=== PATIENT | female | born 1985 | race Caucasian/White ===

== ENCOUNTER 2017-05-12 05:57 | Inpatient (IN) | payer MEDICAID ==
[~2017-05-12] VITALS: Ht 149.9 cm; Wt 82.7 kg
[2017-05-12] MEDS ORDERED: LACTATED RINGER'S 1,000 ML IV PRN (06:45)
[2017-05-12] MEDS ORDERED: LACTATED RINGER'S 1,000 ML IV SCH (07:40)
[2017-05-12] MEDS ORDERED: CARBOPROST 250 MCG INJ IM PRN (08:00)
[2017-05-12] MEDS ORDERED: MISOPROSTOL 200 MCG TAB PR PRN (08:00)
[2017-05-12] MEDS ORDERED: LIDOCAINE 1% (MPF) 30 ML INJ INJ PRN (08:00)
[2017-05-12] MEDS ORDERED: METHYLERGONOVINE 0.2 MG INJ IM PRN (08:00)
[2017-05-12] MEDS ORDERED: OXYTOCIN 30 UNITS/LR 500 ML IV PRN (08:00)
[2017-05-12 08:33] LABS: ADD SCAN DIFF NO
[2017-05-12 08:35] VITALS: BMI 36.8
[2017-05-12 08:36] LABS: BASOPHILS % 0.4 % (0.0-2.0); EOSINOPHILS # 0.1 10^3/ul (0.0-0.5); EOSINOPHILS % 1.1 % (0.0-7.0); HEMATOCRIT 38.6 % (37.0-47.0); HEMOGLOBIN 12.4 g/dl (12.0-16.0); LYMPHOCYTES % 18.7 % (15.0-51.0); MEAN CORPUSCULAR HEMOGLOBIN 28.2 pg (29.0-33.0); MEAN CORPUSCULAR HGB CONC 32.1 g/dl (32.0-37.0); MEAN CORPUSCULAR VOLUME 87.9 fl (82.0-101.0); MEAN PLATELET VOLUME 12.2 fl (7.4-10.4); MONOCYTE # 0.4 10^3/ul (0.3-0.9); MONOCYTES % 7.6 % (0.0-11.0); NEUTROPHIL # 3.8 10^3/ul (1.6-7.5); NEUTROPHILS % 71.8 % (39.0-77.0); PLATELET COUNT 172 10^3/UL (140-415); RED BLOOD COUNT 4.39 10^6/ul (4.20-5.40); WHITE BLOOD COUNT 5.2 10^3/ul (4.8-10.8)
[2017-05-12 08:38] VITALS: Ht 149.9 cm; Wt 82.7 kg
[2017-05-12 08:39] VITALS: BP 126/72; PULSE 74
[2017-05-12 08:39] LABS: ADD UMIC YES; UR BILIRUBIN (Dip) NEGATIVE (NEGATIVE); UR BLOOD (Dip) NEGATIVE (NEGATIVE); UR CLARITY CLEAR (CLEAR); UR COLOR LT. YELLOW (YELLOW); UR GLUCOSE (Dip) NEGATIVE (NEGATIVE); UR KETONES (Dip) NEGATIVE (NEGATIVE); UR LEUKOCYTE ESTERASE (Dip) TRACE (NEGATIVE); UR NITRITE (Dip) NEGATIVE (NEGATIVE); UR TOTAL PROTEIN (Dip) NEGATIVE (NEGATIVE); UR UROBILINOGEN (Dip) 0.2 E.U./dL (0.1-1.0)
[2017-05-12] MEDS ORDERED: PRENAT PO (08:44)
[2017-05-12 08:52] LABS: URINE RBCS NONE SEEN /HPF (0)
[2017-05-12 08:53] LABS: UR BACTERIA FEW; UR SQUAMOUS EPITHELIAL CELL FEW
[2017-05-12 08:56] LABS: INR 0.89; PT RATIO 0.9
[2017-05-12 08:57] LABS: PARTIAL THROMBOPLASTIN TIME 27.9 Sec (25.0-35.0)
[2017-05-12] MEDS ORDERED: MINERAL OIL LIGHT 10 ML VIAL TOP ONE (09:00)
[2017-05-12] MEDS ORDERED: OXYTOCIN 30 UNITS/LR 500 ML IV SCH ×2 (09:00)
[2017-05-12] MEDS ORDERED: IBUPROFEN 600 MG TAB PO PRN (09:00)
[2017-05-12] MEDS ORDERED: ACETAMINOPHEN/CODEINE #3 TAB PO PRN (09:00)
[2017-05-12 09:01] LABS: ALBUMIN 3.8 g/dl (3.3-4.9); ALBUMIN/GLOBULIN RATIO 1.31; BILIRUBIN,INDIRECT 0.1 mg/dl (0-1.1); BILIRUBIN,TOTAL 0.1 mg/dl (0.2-1.3); CALCIUM 8.7 mg/dl (8.4-10.2); CREATININE 0.66 mg/dl (0.44-1.00); POTASSIUM 3.9 mmol/L (3.5-5.1); TOTAL PROTEIN 6.7 g/dl (6.1-8.1); URIC ACID 6.6 mg/dl (3.1-7.9)
[2017-05-12] MEDS: LACTATED RINGER'S 1,000 ML IV SCH ×3 (09:12→22:05)
--- NOTE | 2017-05-12 09:56 | RADRPT ---
PROCEDURE: US OB. CLINICAL INDICATION: Macrosomia TECHNIQUE: Multiple sonographic images of the pelvis were obtained. Transabdominal imaging only w as performed. The images were reviewed on a PACS workstation. COMPARISON: No prior studies are available for comparison. FINDINGS: Single intrauterine gestation. Cephalic presentation. heart rate is 126 bpm. Measurements were made in order to determine age. The results are as follows: BPD = 8.85 cm HC = 31.97 cm AC = 35.02 cm FL = 7.33 cm Gestational age is 37 weeks 0 days and ADALBERTO is 06/02/2015 by ultrasound criteria. EFW = 3330 g +/- 499 g (23 %). The placenta is fundal. There is no evidence for an abruption or placenta previa. IMPRESSION: 1. Single live intrauterine gestation of approximately 37 weeks 0 days by ultrasound criteria. RPTAT: HH .José Miguel Echols MD, MD Date Time Electronically viewed and signed by .José Miguel Echols MD, on 05/12/2017 09:56 .R/
[2017-05-12] MEDS ORDERED: DINOPROSTONE 10 MG VAG SUPP VAG ONE (11:30)
--- NOTE | 2017-05-12 17:29 | HP ---
Date/Time of Note Date/Time of Note DATE: 05/12/17 TIME: 17:27 OB - History Hx of Present Free Text/Dictation admtted for elective induction at term Last Menstrual Period: Jul 18, 2016 Estimated Due Date: May 10, 2017 : 3 Para: 2 Care: Good Care Past Family/Social History * Past Medical, Surgical, Family and Obstetric Histories reviewed from chart. Blood Type: O+ Rubella: immune RPR/VDRL: Negative GBS Status: Negative HBsAG: Negative OB Admission Exam Vital Signs Vital Signs Vital Signs Date Time Temp Pulse Resp B/P Pulse Ox O2 Delivery O2 Flow Rate FiO2 05/12/17 08:39 98.2 74 126/72 Room Air Physical Exam HEENT: WNL Heart: Rhythm Normal Lungs: Clear, Equal Abdomen: WNL Extremities: Normal Reflexes: Normal Cervical Dilatation: None Effacement: 0% Station: -3 Membranes: Intact Heart Rate: 130's Accelerations: Accelerations Present Decelerations: No Decelerations Varibility: Moderate Contractions on Admission: None Last 72 hours Lab Results CBC & BMP 05/12/17 06:45 Liver Function Test 05/12/17 06:45 Alanine Aminotransferase (ALT/SGPT) 40 Albumin 3.8 Alkaline Phosphatase 187 H Aspartate Amino Transf (AST/SGOT) 40 Direct Bilirubin 0.00 Total Protein 6.7 OB Assessment/Plan Reason for admission: induction of labor Other Assessment: term gestation Induction Method: per Misoprostol Protocol MELISSA ESCOBAR MD May 12, 2017 17:29
[2017-05-12] MEDS ORDERED: MINERAL OIL LIGHT 10 ML VIAL TOP PRN (18:00)
[2017-05-12] MEDS: BUTORPHANOL 2 MG INJ IV PRN (21:55)
[2017-05-13] MEDS: LACTATED RINGER'S 1,000 ML IV SCH ×3 (06:00→16:06)
[2017-05-13] MEDS: BUTORPHANOL 2 MG INJ IV PRN ×2 (07:32→09:51)
[2017-05-13] MEDS ORDERED: DINOPROSTONE 10 MG VAG SUPP VAG ONE (11:30)
[2017-05-13] MEDS ORDERED: FENTAnyl 2MCG/ML-ROPIV 0.2% 100 ML ONE (14:01)
[2017-05-13] MEDS ORDERED: FENTAnyl 2MCG/ML-ROPIV 0.2% 100 ML BAG EPI SCH (15:00)
[2017-05-13] MEDS ORDERED: NALOXONE (0.4 MG/ML) INJ IV PRN (15:00)
--- NOTE | 2017-05-13 19:17 | LDN ---
Date/Time of Note Date/Time of Note DATE: 05/13/17 TIME: 19:14 Delivery Summary of a viable infant over intact perineum Weeks of Gestation 40+ Placenta Delivered: Spontaneously, Intact & Complete Meconium: none Episiotomy: No Perineal laceration: 1 Laceration repair: 1st degree perineal laceration was repaired in layers with 2 0 chromib Anesthesia type: Epidural Estimated blood loss: 400 Sponge & Needle done & correct: Yes All needle counts correct: Yes Any foreign bodies felt in the: No Problems: Infant Delivery Information Sex Sex: female Apgars 1 Minute: 9 5 Minute: 9 Suctioning Nose & mouth suctioned at lanny: Yes Delee suction performed: No Umbilical Cord Umbilical cord with: 3 Vessels Cord presentations: no nuchal cord Cord Blood was obtained: Yes Mother & Baby Disposition Disposition Mom & Baby to Maternity; Good: Yes (mother and baby were recovered in good condition ) Mom transferred to: Other (maternity) Baby to NICU: No MELISSA ESCOBAR MD May 13, 2017 19:17
[2017-05-13 20:34] LABS: ADD SCAN DIFF NO
[2017-05-13 20:35] LABS: BASOPHILS % 0.2 % (0.0-2.0); HEMOGLOBIN 12.2 g/dl (12.0-16.0); LYMPHOCYTES # 0.7 10^3/ul (0.8-2.9); MEAN CORPUSCULAR HEMOGLOBIN 28.5 pg (29.0-33.0); MEAN CORPUSCULAR VOLUME 86.4 fl (82.0-101.0); MEAN PLATELET VOLUME 10.8 fl (7.4-10.4); MONOCYTE # 0.6 10^3/ul (0.3-0.9); MONOCYTES % 6.2 % (0.0-11.0); NEUTROPHILS % 86.2 % (39.0-77.0); PLATELET COUNT 187 10^3/UL (140-415); RED BLOOD COUNT 4.28 10^6/ul (4.20-5.40); RED CELL DISTRIBUTION WIDTH 14.3 % (11.5-14.5); WHITE BLOOD COUNT 9.3 10^3/ul (4.8-10.8)
[2017-05-13 20:59] LABS: ALBUMIN 3.4 g/dl (3.3-4.9); ALBUMIN/GLOBULIN RATIO 1.21; BILIRUBIN,INDIRECT 0.3 mg/dl (0-1.1); BILIRUBIN,TOTAL 0.3 mg/dl (0.2-1.3); CALCIUM 8.5 mg/dl (8.4-10.2); CREATININE 0.66 mg/dl (0.44-1.00); TOTAL PROTEIN 6.2 g/dl (6.1-8.1); URIC ACID 7.4 mg/dl (3.1-7.9)
[2017-05-13 23:00] VITALS: BP 142/66; PULSE 68; RESP 20
[2017-05-13] MEDS ORDERED: WITCH HAZEL/GLYCERIN PAD PR PRN (23:00)
[2017-05-13] MEDS ORDERED: ACETAMINOPHEN/CODEINE #3 TAB PO PRN (23:00)
[2017-05-13] MEDS ORDERED: LANOLIN 7 GM TUBE TOP PRN (23:00)
[2017-05-13] MEDS ORDERED: MISOPROSTOL 200 MCG TAB PR PRN (23:00)
[2017-05-13] MEDS ORDERED: ZOLPIDEM 5 MG TAB PO PRN (23:00)
[2017-05-13] MEDS ORDERED: METHYLERGONOVINE 0.2 MG INJ IM PRN (23:00)
[2017-05-13] MEDS ORDERED: OXYTOCIN 30 UNITS/LR 500 ML IV PRN (23:00)
[2017-05-13] MEDS ORDERED: DIBUCAINE 1% 30 GM OINT PR PRN (23:00)
[2017-05-13] MEDS ORDERED: CARBOPROST 250 MCG INJ IM PRN (23:00)
[2017-05-13] MEDS ORDERED: BENZOCAINE 20% 56 ML SPRAY TOP PRN (23:00)
[2017-05-14] VITALS (22 sets, daily range): BP systolic 120–166; BP diastolic 60–88; PULSE 52–73; RESP 11–20
[2017-05-14] MEDS: ACETAMINOPHEN/CODEINE #3 TAB PO PRN (03:12)
[2017-05-14] MEDS: LACTATED RINGER'S 1,000 ML IV* SCH ×4 (04:09→22:36)
[2017-05-14] MEDS: CEPHALEXIN 500 MG CAP PO SCH ×3 (06:06→19:02)
[2017-05-14] MEDS: IBUPROFEN 600 MG TAB PO SCH ×3 (06:06→19:02)
[2017-05-14] MEDS ORDERED: CEFAZOLIN 1 GM INJ ONE (07:00)
[2017-05-14 07:39] LABS: ADD SCAN DIFF NO; BASOPHILS % 0.3 % (0.0-2.0); EOSINOPHILS % 0.5 % (0.0-7.0); HEMATOCRIT 33.2 % (37.0-47.0); HEMOGLOBIN 10.8 g/dl (12.0-16.0); LYMPHOCYTES # 1.1 10^3/ul (0.8-2.9); LYMPHOCYTES % 17.4 % (15.0-51.0); MEAN CORPUSCULAR HEMOGLOBIN 28.6 pg (29.0-33.0); MEAN CORPUSCULAR HGB CONC 32.5 g/dl (32.0-37.0); MEAN CORPUSCULAR VOLUME 87.8 fl (82.0-101.0); MEAN PLATELET VOLUME 11.4 fl (7.4-10.4); MONOCYTE # 0.4 10^3/ul (0.3-0.9); MONOCYTES % 5.6 % (0.0-11.0); NEUTROPHIL # 4.7 10^3/ul (1.6-7.5); NEUTROPHILS % 75.9 % (39.0-77.0); PLATELET COUNT 157 10^3/UL (140-415); RED BLOOD COUNT 3.78 10^6/ul (4.20-5.40); RED CELL DISTRIBUTION WIDTH 14.2 % (11.5-14.5); WHITE BLOOD COUNT 6.2 10^3/ul (4.8-10.8)
[2017-05-14] MEDS: MAGNESIUM HYDROXIDE 30ML CUP PO SCH (09:00)
[2017-05-14] MEDS: SENNA/DOCUSATE NA (8.6MG/50MG) TAB PO SCH (09:00)
[2017-05-14] MEDS ORDERED: MEPERIDINE 25 MG INJ IV ONE (11:00)
--- NOTE | 2017-05-14 16:53 | PN ---
Date/Time of Note Date/Time of Note DATE: 05/14/17 TIME: 16:51 Assessment/Plan VTE Prophylaxis VTE Prophylaxis Intervention: ambulation Lines/Catheters IV Catheter Type (from Nrs): Peripheral IV Assessment/Plan Assessment/Plan S/P vaginal delivery desires sterilization will proceed with PP BTL Subjective 24 Hr Interval Summary Free Text/Dictation S/P vaginal delivery desires sterilization Constitutional: improved, no complaints Eyes: no complaints ENT: no complaints Respiratory: no complaints Cardiovascular: no complaints Gastrointestinal: no complaints Genitourinary: no complaints Musculoskeletal: no complaints Skin: no complaints Neurologic: no complaints Endocrine: no complaints Lymphatic: no complaints Psychological: nl mood/affect, no complaints Immunologic: no complaints Exam/Review of Systems Vital Signs Vitals Vital Signs Date Time Temp Pulse Resp B/P Pulse Ox O2 Delivery O2 Flow Rate FiO2 05/14/17 16:19 98.1 62 20 129/68 Room Air Intake and Output 05/13/17 05/13/17 05/14/17 15:00 23:00 07:00 Intake Total 1800 ml 2010 ml 500 ml Output Total 2000 ml 1995 ml 1100 ml Balance -200 ml 15 ml -600 ml Exam fundus: firm Constitutional: alert, oriented, well developed Psych: nl mood/affect, no complaints Head: atraumatic, normocephalic Eyes: EOMI, PERRL, nl conjunctiva, nl lids, nl sclera ENMT: nl external ears & nose, nl lips & teeth, nl nasal mucosa & septum Neck: non-tender, supple Respiratory: clear to auscultation, normal air movement Cardiovascular: nl pulses, regular rate and rhythm Gastrointestinal: nl liver, spleen, non-tender, soft Genitourinary - Female: uterus (at umbilicus ) Musculoskeletal: nl extremities to inspection, nl gait and stance Extremities: normal pulses Neurological: BATTERY TESTER II-XII intact, nl mental status, nl speech, nl strength Skin: nl turgor, No rash or lesions Lymph: nl lymph nodes Results Result Diagram: 05/14/1771605/13/172029 Results 24 hrs Laboratory Tests Test 05/13/17 20:30 05/14/17 07:17 White Blood Count 9.3 # 6.2 # Red Blood Count 4.28 3.78 L Hemoglobin 12.2 10.8 L Hematocrit 37.0 33.2 L Mean Corpuscular Volume 86.4 87.8 Mean Corpuscular Hemoglobin 28.5 L 28.6 L Mean Corpuscular Hemoglobin Concent 33.0 32.5 Red Cell Distribution Width 14.3 14.2 Platelet Count 187 157 Mean Platelet Volume 10.8 H 11.4 H Neutrophils % 86.2 H 75.9 Lymphocytes % 7.0 L 17.4 Monocytes % 6.2 5.6 Eosinophils % 0.0 0.5 Basophils % 0.2 0.3 Nucleated Red Blood Cells % 0.0 0.0 Neutrophils # 8.0 H 4.7 Lymphocytes # 0.7 L 1.1 Monocytes # 0.6 0.4 Eosinophils # 0.0 0.0 Basophils # 0.0 0.0 Nucleated Red Blood Cells # 0.0 0.0 Sodium Level 136 Potassium Level 4.0 Chloride Level 107 Carbon Dioxide Level 22 Anion Gap 11 Blood Urea Nitrogen 13 Creatinine 0.66 Glucose Level 81 Uric Acid 7.4 Calcium Level 8.5 Total Bilirubin 0.3 Direct Bilirubin 0.00 Indirect Bilirubin 0.3 Aspartate Amino Transf (AST/SGOT) 41 Alanine Aminotransferase (ALT/SGPT) 38 Alkaline Phosphatase 158 H Total Protein 6.2 Albumin 3.4 Globulin 2.80 Albumin/Globulin Ratio 1.21 Medications Medications Current Medications Lactated Ringer's (Lr) 1,000 ml @ 125 mls/hr Q8H IV* Last administered on 05/14 12:31; Admin Dose 125 MLS/HR; Start 05/13/17 at 22:36 Ibuprofen (Motrin) 600 mg Q6 PO Last administered on 05/14/17 06:06; Admin Dose 600 MG; Start 05/14/17 at 00:00 Acetaminophen/ Codeine Phosphate (Tylenol No.3) 1 tab Q4H PRN PO PAIN LEVEL 1- 5 Last administered on 05/14/17 03:12; Admin Dose 1 TAB; Start 05/13/17 at 23: 00 Acetaminophen/ Codeine Phosphate (Tylenol No.3) 2 tab Q4H PRN PO PAIN LEVEL 6- 10; Start 05/13/17 at 23:00 Zolpidem Tartrate (Ambien) 5 mg QHS PRN PO INSOMNIA; Start 05/13/17 at 23:00 Senna/Docusate Sodium (Senokot-S) 1 tab BID PO ; Start 05/14/17 at 09:00 Magnesium Hydroxide (Milk Of Mag) 30 ml Q12 PO ; Start 05/14/17 at 09:00 Measles/Mumps/ Rubella Vaccine Live (Mmr Ii Vaccine) 0.5 ml ONCE ONCE SC* ; Start 05/15/17 at 09:00; Stop 05/15/17 at 09:01 Diphtheria/ Tetanus/Acell Pertussis (Adacel) 0.5 ml ONCE ONCE IM* ; Start at 09:00; Stop 05/15/17 at 09:01 Varicella Virus Vaccine Live 1350 unit 1,350 unit ONCE ONCE SC* ; Start at 09:00; Stop 05/15/17 at 09:01 Oxytocin/Lactated Ringer's 500 ml @ 0 mls/hr ONCE PRN IV For Hemorrhage Management Last administered on 05/13/17 22:53; Admin Dose 500 MLS/HR; Start at 23:00 Methylergonovine Maleate (Methergine) 0.2 mg ONCE PRN IM VAGINAL BLEEDING; Start 05/13/17 at 23:00 Carboprost Tromethamine (Hemabate) 250 mcg ONCE PRN IM VAGINAL BLEEDING; Start 05/13/17 at 23:00 Misoprostol (Cytotec) 1,000 mcg ONCE PRN [place] VAGINAL BLEEDING; Start 05/13/17 at 23:00 Cephalexin (Keflex) 500 mg Q6 PO Last administered on 05/14/17 06:06; Admin Dose 500 MG; Start 05/14/17 at 00:00 MELISSA ESCOBAR MD May 14, 2017 16:53
[2017-05-14] MEDS ORDERED: HYDROmorphONE (0.2 MG/ML) 10ML SYG IV PRN (17:30)
[2017-05-14] MEDS ORDERED: ONDANSETRON 4 MG INJ IV PRN (17:30)
[2017-05-14] MEDS ORDERED: MEPERIDINE 25 MG INJ IV PRN (17:30)
[2017-05-14] MEDS ORDERED: DIPHENHYDRAMINE 50 MG INJ IV PRN (17:30)
[2017-05-14] MEDS ORDERED: FENTAnyl 50 MCG/ML VIAL IV PRN (17:30)
[2017-05-14] MEDS ORDERED: PROCHLORPERAZINE 10 MG INJ IV PRN (17:30)
[2017-05-14] MEDS ORDERED: MIDAZOLAM 1 MG/ML 2 ML INJ ONE (17:31)
[2017-05-14] MEDS ORDERED: FENTAnyl 50 MCG/ML VIAL ONE (17:34)
[2017-05-14] MEDS ORDERED: BUPIVACAINE 0.25%/EPI (SDV) 30 ML INJ ONE (17:41)
[2017-05-14] MEDS ORDERED: KETOROLAC 30 MG INJ ONE (18:20)
[2017-05-14] MEDS ORDERED: LACTATED RINGER'S 1,000 ML IV SCH (18:24)
[2017-05-14] MEDS ORDERED: KETOROLAC 60 MG INJ IM STA (18:24)
--- NOTE | 2017-05-14 18:24 | OPR ---
Operative Report Planned Procedure Procedure date May 14, 2017 Procedure(s) bilateral tubal ligation Performed by: MELISSA ESCOBAR MD Anesthesiologist: BABATUNDE MICHELLE MD Pre-procedure diagnosis S/P vaginal delivery desires sterilization Anesthesia Type: spinal Procedure Description The patient was placed on the OR table in supine position. Spinal anesthesia was placed. A Martinez catheter was then inserted into urinary bladder under aseptic condition. After induction of spinal anesthesia, with the patient in supine position, abdominal area was prepped and draped for usual tubal ligation procedure. Under satisfactory anesthesia, a small incision 2 to 3 cm in length was placed just below belly button, incision extended laterally to 1.5 cm lateral to the linea nigra on either side. Incision was carried down with sharp and blunt dissection until fascia was reached. Anterior recti muscle fascia was incised in the midportion. Incision extended laterally to the border of the skin incision. Peritoneum was visualized. Avoiding bowel or bladder, incision was made in peritoneum, which was extended laterally to the border of the skin incision. Two [place] retractors were placed inside the incision. Incision was brought up to the level of the left fallopian tube. Fallopian tube was raised in the mid portion. A clamp was placed below the fimbriated end, most of the fallopian tube from the mesosalpinx traversing the isthmus portion of the tube. Another clamp was placed just below the first and 0 Vicryl tie was used to tie the mesosalpinx and the stump of the fallopian tube on the proximal side. Another stitch of the same kind was used for adequate hemostasis. Hemostasis appeared to be secure on ligated sites of the fallopian tube. Tube was incised above the stitched area. Same procedure was done on the fallopian tube on opposite side. Hemostasis appeared to be secure on ligated sites of either fallopian tubes. Ovaries were within normal limits. Uterus appears to be size. Announcing needle, lap, sponge and instrument count to be correct, abdomen was closed in layers as follows: Peritoneum with running stitches of #1 Vicryl, fascia edges of #1 Vicryl, subcutaneous tissue with running stitches of #1 Vicryl, and skin was reapproximated using subcuticular stitches of 4-0 Monocryl on a PS2 needle and also Dermabond was placed on the incision. The patient tolerated the procedure very well and was transferred to postanesthesia recovery room in stable and good condition. ESTIMATED BLOOD LOSS: Less than 5 mL. Post-Procedure Post-procedure diagnosis S/P BTL Findings: normal R ald L fallopian tubes and ovaries Specimen removed: Yes Specimen description segments of R and L fallopian tubes Complications: None Pt Condition post procedure: stable Disposition: PACU Physician Certification I, the undersigned physician, hereby certify that I have discussed the procedure described in this consent form with this patient (or the patient's legal retail field representative), including: * The risk and benefits of the procedure; * Any adverse reactions that may reasonably be expected to occur; * Any alternative efficacious methods of treatment which may be medically viable ; * The potential problems that may occur during recuperation; * Potential for blood transfusion and associated risks/benefits; and * Any research or economic interest I may have regarding this treatment. I further certify that the patient/legally responsible person was encouraged to ask question and that all questions were answered. MELISSA ESCOBAR MD May 14, 2017 18:24
--- NOTE | 2017-05-14 18:29 | DS ---
Date/Time of Note Date/Time of Note home next day DATE: 05/14/17 TIME: 18:27 Obstetrical Discharge Record Final Diagnosis Final Diagnosis: Term delivered Other Final Diagnosis S/P vaginal delivery Vaginal Delivery Obstetrical Delivery: Spontaneous, Laceration, Repaired, Bilateral Tubal Ligation Complications Augmentation: Yes Induction: Yes Condition on Discharge Physical Assessment Last Vitals: see nurses notes Voiding: Yes Bowel Movement: Yes Breast: Soft, non-tender, Filling Fundus: Firm Abdomen and Incision: abdomen: soft bs + incision: healing well Episiotomy: NA perineum: healing Calf Tenderness: No Patient Condition: Good MELISSA ESCOBAR MD May 14, 2017 18:29
[2017-05-14] MEDS ORDERED: BUTORPHANOL 2 MG INJ IM ONE (18:30)
[2017-05-14] MEDS ORDERED: LABETALOL HCL 20MG INJ IV PRN (18:30)
[2017-05-14] MEDS ORDERED: hydrALAzine 20 MG INJ IV PRN (18:30)
--- NOTE | 2017-05-14 18:32 | PD.PPDC ---
PHYSICIAN ALLERGIST IMMUNOLOGIST Discharge Instruction Provider Information Physician Information 32 y/o female admitted for induction of the labor and had vaginal delivery and PP BTL Diagnosis Final Diagnosis: S/P vaginal delivery and BTL Condition Patient Condition: Good Diet Diet: Resume Regular Diet Activity/Restrictions Activity: Normal Activity May Shower Restrictions: Nothing in the Vagina Return to Work or School: Jun 30, 2017 Wound/Drain Care Instructions Wound/Drain Care Instructions: Keep clean and dry Follow-up Follow-up with Physician: 4, Week/Weeks (in clinic) Return to clinic for BUILD TECHNICIAN Instructions: Fever greater than 101 Chills Worsening abdominal pain Excessive Vaginal Bleeding OB Instructions: Breast Tenderness Depression Surgical Instructions: Incisional Drainage Incisional Redness MELISSA ESCOBAR MD May 14, 2017 18:32
[2017-05-14] MEDS ORDERED: IBUP-1542 PO (18:33)
[2017-05-14] MEDS ORDERED: ACET1TAB40 PO (18:33)
[2017-05-14] MEDS ORDERED: KETOROLAC 30 MG INJ IM SCH (18:45)
[2017-05-15] VITALS: BP 121/62; PULSE 63; RESP 20
[2017-05-15] MEDS: MAGNESIUM HYDROXIDE 30ML CUP PO SCH ×2 (00:06→11:41)
[2017-05-15] MEDS: SENNA/DOCUSATE NA (8.6MG/50MG) TAB PO SCH ×2 (00:06→11:41)
[2017-05-15] MEDS: IBUPROFEN 600 MG TAB PO SCH ×4 (00:06→11:23)
[2017-05-15] MEDS: CEPHALEXIN 500 MG CAP PO SCH ×3 (00:06→11:23)
[2017-05-15 04:00] VITALS: BP 129/67; PULSE 61; RESP 20
[2017-05-15] MEDS: LACTATED RINGER'S 1,000 ML IV* SCH (06:36)
[2017-05-15 08:00] VITALS: BP 140/75; PULSE 68; RESP 18
[2017-05-15] MEDS ORDERED: DIPHTH/TET/ACEL PERTUSS (ADULT) 0.5 ML VIAL IM* ONE (09:00)
[2017-05-15] MEDS ORDERED: MEASLES,MUMPS,RUBELLA VACCINE INJ SC* ONE (09:00)
[2017-05-15] MEDS ORDERED: VARICELLA VACCINE LIVE/PF 1,350 UNIT/0.5 ML ML SC* ONE (09:00)
[2017-05-15] MEDS: ACETAMINOPHEN/CODEINE #3 TAB PO PRN (15:36)
[2017-05-15 16:00] VITALS: BP 140/78; PULSE 57; RESP 18
== END 2017-05-15 16:40 | disposition home or self-care (01) | DRG 767 ==
LOC: L-D 05:57 → PP1 05-13 22:25
PROVIDERS: ADMIT Obstetrics & Gynecology; ATTEND Obstetrics & Gynecology
PROC: 10E0XZZ Delivery of Products of Conception, External Approach (ICD-10-PCS; principal; 2017-05-13)
PROC: 3E033VJ Introduction of Other Hormone into Peripheral Vein, Percutaneous Approach (ICD-10-PCS; 2017-05-13)
PROC: 0UL70ZZ Occlusion of Bilateral Fallopian Tubes, Open Approach (ICD-10-PCS; 2017-05-14)
DX: O48.0 Post-term pregnancy (principal); E66.01 Morbid (severe) obesity due to excess calories; Z3A.40 40 weeks gestation of pregnancy; O70.0 First degree perineal laceration during delivery; O99.214 Obesity complicating childbirth; Z30.2 Encounter for sterilization; Z68.36 Body mass index [BMI] 36.0-36.9, adult; Z37.0 Single live birth
CPT/HCPCS: 62319; 76815; 80053; 81001; 84560; 85025; 85610; 85730; 86592; 86900; 86901; 87340; 88302; 90715; 90716; J0595; J0690; J1170; J1885; J2175; J2250; J2405; J2590; J3010; J7120